=== PATIENT | male | born 1955 | race Two or more races ===

== ENCOUNTER 2017-11-16 07:36 | Emergency (ER) | payer OTHER ==
[~2017-11-16] VITALS: Ht 182.9 cm; Wt 88.5 kg
[~2017-11-16 07:36] MED LIST: MICARDIS HCT1 UDTAB; NORVASC5 MG
[2017-11-16] MEDS ORDERED: TRIBENZOR 40-11 EAC1 (07:58)
[2017-11-16] MEDS ORDERED: FLECAINIDE ACE100 MG (07:58)
== END 2017-11-16 10:06 | disposition home or self-care (01) ==
LOC: ER 07:36
DX: S01.21XA Laceration without foreign body of nose, initial encounter (principal); S00.83XA Contusion of other part of head, initial encounter; V19.9XXA Pedal cyclist (driver) (passenger) injured in unspecified traffic accident, initial encounter; Y93.89 Activity, other specified; Y92.89 Other specified places as the place of occurrence of the external cause; Y99.8 Other external cause status

== ENCOUNTER 2017-11-19 14:22 | Outpatient (CLI) | payer OTHER ==
[~2017-11-19 14:22] MED LIST changes: +FLECAINIDE ACE100 MG; +TRIBENZOR 40-11 EAC1
== END 2017-11-19 14:41 | disposition home or self-care, planned readmission (81) ==
LOC: TOM 14:22
DX: S52.551A Other extraarticular fracture of lower end of right radius, initial encounter for closed fracture (principal); S63.511A Sprain of carpal joint of right wrist, initial encounter

== ENCOUNTER 2017-12-05 13:09 | Outpatient (CLI) | payer OTHER | END 2017-12-05 13:18 | disposition home or self-care (01) | LOC: RAD 501 13:09 | DX: S52.551A Other extraarticular fracture of lower end of right radius, initial encounter for closed fracture (principal) ==

== ENCOUNTER 2018-07-18 14:10 | Outpatient (CLI) | payer OTHER | END 2018-07-18 14:33 | disposition home or self-care (01) | LOC: RAD 14:10 | DX: S42.021A Displaced fracture of shaft of right clavicle, initial encounter for closed fracture (principal) ==

== ENCOUNTER 2018-10-06 14:05 | Outpatient (CLI) | payer OTHER | END 2018-10-06 14:16 | disposition home or self-care (01) | LOC: RAD 14:05 | DX: S42.021D Displaced fracture of shaft of right clavicle, subsequent encounter for fracture with routine healing (principal) ==

== ENCOUNTER 2019-01-08 08:21 | Outpatient (CLI) | payer OTHER | END 2019-01-08 08:32 | disposition home or self-care (01) | LOC: RAD 08:21 | DX: S42.021D Displaced fracture of shaft of right clavicle, subsequent encounter for fracture with routine healing (principal) ==

== ENCOUNTER 2023-03-10 10:29 | Emergency (ER) | payer OTHER ==
[~2023-03-10] VITALS: Ht 185.4 cm; Wt 98.9 kg
[2023-03-10] MEDS ORDERED: ATORVASTATIN CA10 MG PO (10:45)
[2023-03-10] MEDS ORDERED: XARELTO20 MG (10:46)
[2023-03-10] MEDS ORDERED: TRAMADOL HCL50 MG PO (11:34)
== END 2023-03-10 12:12 | disposition home or self-care (01) ==
LOC: ER 10:30
DX: S22.32XA Fracture of one rib, left side, initial encounter for closed fracture (principal); W19.XXXA Unspecified fall, initial encounter; Y93.89 Activity, other specified; Y92.89 Other specified places as the place of occurrence of the external cause; Y99.8 Other external cause status; R07.81 Pleurodynia; I10 Essential (primary) hypertension